=== PATIENT | male | born 1980 | race Hispanic/Latino ===

== ENCOUNTER 2018-09-28 08:04 | Emergency (ER) | payer SELFPAY ==
--- NOTE | 2018-09-28 08:42 | RAD ---
XR Chest Pa Lat STANDARD History: [Cough] Comparison: Radiograph from October 05, 2016 Findings: Loss of volume in the right upper lobe may be sequelae of prior right lateral third-fifth r ib fractures. No focal airspace consolidation, pneumothorax, or effusion. Cardiac silhouette and mediastinal contours are within normal limits. Impression: No acute intrathoracic abnormality.
== END 2018-09-28 09:01 | disposition home or self-care (01) ==
LOC: ERS 08:04
DX: J20.9 Acute bronchitis, unspecified (principal); I10 Essential (primary) hypertension
CPT/HCPCS: 71046

== ENCOUNTER 2020-06-02 09:23 | Emergency (ER) | payer SELFPAY ==
--- NOTE | 2020-06-02 10:01 | RAD ---
EXAM: Single view of the chest HISTORY: Covid positive with increasing shortness of breath COMPARISON: 10/05/2016 FINDINGS: Single view of the chest shows an enlarged but stable cardiomediastinal silhouette. Diffuse subtle mixed peripheral infiltrates are seen in the lungs, greatest in the lower lobes. No acute osseous abnormality. 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 IMPRESSION: Bibasilar infiltrates.
[2020-06-02 10:31] LABS: #Eosinphils 0.1 thou/uL (0.0-0.7); #Monocytes 0.3 thou/uL (0.11-0.59); #Neutrophils 2.4 thou/uL (1.40-6.50); %Basophils 0.8 % (0.0-1.0); %Eosinophils 1.4 % (0.0-10.0); %Lymphocytes 26.2 % (21.0-51.0); %Monocytes 8.1 % (0.0-10.0); %Neutrophils 63.5 % (42.0-75.0); Hemoglobin 16.5 g/dL (14.0-18.0); Mean Corpuscular HGB CONC 36.1 g/dL (32.0-36.0); Mean Corpuscular Volume 94.2 fL (78.0-98.0); Mean Platelet Volume 7.4 fL (7.4-10.4); Platelet Count 148 thou/uL (130-400); RBC Distribution Width 11.9 % (11.5-14.5); Red Blood Cell (RBC) Count 4.86 mill/uL (4.70-6.10); White Blood Cell (WBC) Count 3.8 thou/uL (4.8-10.8)
[2020-06-02] MEDS ORDERED: Dexamethasone 4 mg/ml Vial ONE (10:52)
[2020-06-02 10:56] LABS: ALT (SGPT) 25 U/L (8-55); AST (SGOT) 24 U/L (5-34); Alkaline Phosphatase 90 U/L (40-110); Anion Gap 16 mmol/L (10-20); BUN (Urea Nitrogen) 16 mg/dL (8.9-20.6); Bilirubin, Total 0.9 mg/dL (0.2-1.2); Calc. Creatinine Clearance 0 mL/min (70-130); Calcium 9.1 mg/dL (7.8-10.44); Carbon Dioxide 25 mmol/L (22-29); Chloride 99 mmol/L (98-107); Globulin 3.7 g/dL (2.4-3.5); Glucose 244 mg/dL (70-105); Potassium 3.5 mmol/L (3.5-5.1); Protein, Total 7.7 g/dL (6.0-8.3); Sodium 136 mmol/L (136-145)
[2020-06-02] MEDS ORDERED: Albuterol 200 PUFF (6.7GM INHALER) ONE (11:21)
[2020-06-02 11:23] LABS: Troponin I Less than 0.010 ng/mL (< 0.028)
[2020-06-02 14:51] LABS: Troponin I Less than 0.010 ng/mL (< 0.028)
== END 2020-06-02 15:33 | disposition home or self-care (01) ==
LOC: ERS 09:23
DX: U07.1 COVID-19 (principal); J12.82 Pneumonia due to coronavirus disease 2019; E11.65 Type 2 diabetes mellitus with hyperglycemia; I10 Essential (primary) hypertension
CPT/HCPCS: 36415; 71045; 80053; 83605; 84484; 85025; 87040; 93005; J1100

== ENCOUNTER 2021-05-10 09:21 | Emergency (ER) | payer SELFPAY ==
[2021-05-10 09:58] LABS: Bilirubin Negative (Negative); Blood, Urine Negative (Negative); Clarity Clear (Clear); Glucose, Urine (Dipstick) Greater than 1000 mg/dL (Negative); Ketone, Urine Negative (Negative); Leukocyte Negative Leu/uL (Negative); Nitrite Negative (Negative); Protein, Urine (Dipstick) 20 mg/dL (Neg-Trace); Specific Gravity, Urine 1.027 (1.002-1.036); Urobilinogen Normal mg/dL (Less than 2)
[2021-05-10 11:47] LABS: Actual Bicarbonate (HCO3v) 23 mEq/L (22-28); Analyzer IN Cardio ER; Base Excess -1.5 mEq/L (-2.0 to +3.0); Calcium, Ionized (venous) 1.12 mmol/L (1.16-1.32); Chloride (VBG) 98 mmol/L (98-106); Hemoglobin (Hb) 17.9 g/dL (13.2-17.3); Potassium (VBG) 5.31 mmol/L (3.70-5.30); Sodium 133.8 mmol/L (133-146); pH (venous) 7.38 (7.32-7.43)
[2021-05-10] MEDS ORDERED: Ondansetron PF 4 MG/2 ML Vial ONE (11:51)
[2021-05-10] MEDS ORDERED: Morphine 4 MG/ML VIAL ONE (11:51)
[2021-05-10 12:07] LABS: #Eosinphils 0.1 thou/uL (0.0-0.7); #Lymphocytes 1.4 thou/uL (1.20-3.40); #Monocytes 0.2 thou/uL (0.11-0.59); #Neutrophils 4.3 thou/uL (1.40-6.50); %Basophils 0.7 % (0.0-1.0); %Lymphocytes 22.8 % (21.0-51.0); %Monocytes 3.6 % (0.0-10.0); %Neutrophils 70.9 % (42.0-75.0); Hemoglobin 17.1 g/dL (14.0-18.0); Mean Corpuscular Hemoglobin 33.5 pg (27.0-31.0); Mean Platelet Volume 8.8 fL (7.4-10.4); Platelet Count 170 thou/uL (130-400); RBC Distribution Width 12.4 % (11.5-14.5); Red Blood Cell (RBC) Count 5.12 mill/uL (4.70-6.10)
[2021-05-10] MEDS ORDERED: hydrALAZINE 20 MG/ML VIAL ONE (12:22)
[2021-05-10 13:05] LABS: ALT (SGPT) 25 U/L (8-55); AST (SGOT) 18 U/L (5-34); Albumin 3.9 g/dL (3.5-5.0); Alkaline Phosphatase 84 U/L (40-110); Anion Gap 14 mmol/L (10-20); BUN (Urea Nitrogen) 13 mg/dL (8.9-20.6); Bilirubin, Total 0.8 mg/dL (0.2-1.2); Calc. Creatinine Clearance 0 mL/min (70-130); Calcium 8.7 mg/dL (7.8-10.44); Carbon Dioxide 23 mmol/L (22-29); Chloride 100 mmol/L (98-107); Globulin 3.1 g/dL (2.4-3.5); Glucose 283 mg/dL (70-105); Potassium 4.1 mmol/L (3.5-5.1); Sodium 133 mmol/L (136-145)
[2021-05-10] MEDS ORDERED: Insulin Regular 300 UNITS/3 ML VIAL ONE (13:50)
[2021-05-10 16:58] LABS: Troponin I Less than 0.010 ng/mL (< 0.028)
[2021-05-10 18:39] LABS: SARS-CoV-2 PCR by NAA Not Detected (NotDetected)
== END 2021-05-10 18:57 | disposition home or self-care (01) ==
LOC: ERS 09:21
DX: R07.9 Chest pain, unspecified (principal); I10 Essential (primary) hypertension
CPT/HCPCS: 36415; 36416; 71045; 80053; 81003; 82010; 82805; 84484; 85025; 93005; 96374; 96375; J0360; J1815; J2270; J2405; U0003; U0005